=== PATIENT | male | born 1975 ===

== ENCOUNTER 2021-06-18 15:09 | Outpatient (REF) | payer OTHER, SELFPAY ==
[2021-06-18 21:02] LABS: Calculated LDL 142 mg/dL (<100); Cholesterol 208 mg/dL (<200); Glucose 95 mg/dL (74-106); HDL Cholesterol 53 mg/dL (40-60); Triglyceride 65 mg/dL (<150)
[2021-06-19 18:21] LABS: PSA, Screening 1.8 ng/mL (0.0-2.5)
== END 2021-06-18 15:10 | disposition home or self-care (01) ==
LOC: NCHCN 15:09
PROVIDERS: PCP Internal Medicine; Visit Provider Nurse Practitioner Family
DX: Z13.1 Encounter for screening for diabetes mellitus (principal); Z13.220 Encounter for screening for lipoid disorders; Z12.5 Encounter for screening for malignant neoplasm of prostate
CPT/HCPCS: 80061; 82947; 84153

== ENCOUNTER 2024-11-13 15:23 | Outpatient (REF) | payer OTHER, SELFPAY ==
[2024-11-13 20:58] LABS: HGB 15.2 g/dL (13.5-17.5); MCH 30.5 pg (27.0-33.0); MCHC 33.8 % (32.0-36.0); MCV 90 fL (80-95); MPV 10.7 fL (8.0-11.0); Platelet Count 245 10^3/uL (130-400); RBC 4.98 10^6/uL (4.36-5.78); RDW-SD 39.6 fL; WBC 7.13 10^3/uL (4.4-10.8)
[2024-11-13 21:21] LABS: ALT 23 U/L (16-63); AST 21 U/L (15-37); Albumin 4.4 g/dL (3.4-5.0); Alkaline Phosphatase 59 U/L (46-116); Anion Gap 11.3 mmol/L (3-11); BUN 18 mg/dL (7-18); Bilirubin, Total 0.38 mg/dL (0.2-1.0); CO2 26.7 mmol/L (21.0-32.0); Calcium 9.3 mg/dL (8.5-10.1); Calculated LDL 145 mg/dL (<100); Chloride 107 mmol/L (98-107); Cholesterol 220 mg/dL (<200); Estimated GFR 91.69 (mL/min/1.73m2); Glucose 105 mg/dL (74-106); HDL Cholesterol 53 mg/dL (40-60); Potassium 4.1 mmol/L (3.5-5.1); Sodium 145 mmol/L (136-145); TSH 1.49 uIU/mL (0.36-3.74); Total Protein 8.3 g/dL (6.4-8.2); Triglyceride 111 mg/dL (<150)
== END 2024-11-13 15:24 | disposition home or self-care (01) ==
LOC: NCHCN 15:23
PROVIDERS: PCP Internal Medicine; Visit Provider Family Medicine
DX: E78.5 Hyperlipidemia, unspecified (principal); R00.2 Palpitations
CPT/HCPCS: 80053; 80061; 85027; 84443